=== PATIENT | female | born 1985 | race Caucasian/White ===

== ENCOUNTER → 2019-10-12 09:59 | Outpatient (CLI) | payer OTHER, SELFPAY ==
--- NOTE | ~2019-10-12 | XR_ITS ---
EXAMINATION: XR chest 2V DATE: 10/12/2019 10:33 INDICATION: Cough, shortness of breath and fever TECHNIQUE: frontal and lateral views of the chest were obtained. COMPARISON: Chest radiograph dated 11/29/2018 FINDINGS: Minimal scarring at the right apex. Unchanged symmetric nipple shadows projecting over the bilateral lower lung zones. No new airspace opacities, pulmonary edema, pleural effusion or pneumothorax. The c ardiomediastinal silhouette is normal. Visualized bones and soft tissues are unremarkable. IMPRESSION: 1. No acute cardiopulmonary disease. Reviewed, dictated and finalized at location A.
== END ==
PROVIDERS: PCP Family Medicine; Visit Provider Physician Assistant Medical
DX: R50.9 Fever, unspecified (principal); R06.02 Shortness of breath; R05 Cough
CPT/HCPCS: 71046

== ENCOUNTER → 2021-07-30 08:54 | Outpatient (CLI) | payer OTHER, SELFPAY ==
[2021-07-30 21:19] LABS: SARS-CoV-2 RNA PCR Negative
== END ==
PROVIDERS: PCP Family Medicine; Visit Provider Nurse Practitioner Family
DX: R68.89 Other general symptoms and signs (principal); Z20.822 Contact with and (suspected) exposure to COVID-19
CPT/HCPCS: C9803; U0003; U0005

== ENCOUNTER 2021-09-08 07:48 | Inpatient (IN) | payer OTHER, SELFPAY ==
[2021-09-08] VITALS (15 sets, daily range): BP systolic 89–120; BP diastolic 51–72; PULSE 76–88; RESP 16–20; TEMP 36.4–37.9; O2SAT 95–100; BMI 20.3
--- NOTE | ~2021-09-08 | XR_ITS ---
XR abdomen/kub 1V 09/08/2021 09:11 Indication: Right ureteral stone. Procedure: KUB Comparison: CT dated 09/08/2021 Findings: There is delayed enhancement of the right kidney. There is a stone overlying the right blad pankaj obscured by overlying contrast in the bladder lumen. There are stones in the lower pole of the ri ght kidney. The left renal collecting system and visualized aspects of the ureter are unremarkable. Impression: 1: Probable right UVJ stone corresponding to CT finding. Delayed excretion into the right kidney, con sistent with high-grade obstruction. 2: Nonobstructing right nephrolithiasis. Reviewed, dictated and finalized at location B. CLEANER OPERATOR Impression: 1: Probable right UVJ stone corresponding to CT finding. Delayed excretion into the right kidney, consistent with high-grade obstruction. 2: Nonobstructing right nephrolithiasis.
--- NOTE | ~2021-09-08 | CT_ITS ---
EXAMINATION: CT abdomen pelvis w con DATE: 09/08/2021 08:49 INDICATION: Right-sided abdominal pain. TECHNIQUE: Computed tomography (CT) of the abdomen and pelvis was performed with 100 cc Omnipaque 350 intravenous contrast. The dose-length product was 216.61 mGy-cm. Automated exposure control and iter ative reconstruction technique were employed. COMPARISON: None. FINDINGS: Lung bases are unremarkable. Heart size normal. No significant pleural or pericardial effus ion. The liver, spleen, pancreas, adrenal glands are unremarkable. There is a small left renal cyst m easuring 9 mm. There is dense a subtle hyperdense lesion measuring 1.8 x 1.1 cm anterior aspect of th e right kidney, image 76. There is an 8 x 4 mm right UVJ stone with severe right hydroureteronephrosi s. There are nonobstructing right renal stones. There is delayed enhancement of the right renal paren chyma. Gallbladder is present. Nonobstructive bowel gas pattern. No free air or free fluid. No abnorm al pelvic masses or fluid collections. IMPRESSION: 1. Right UVJ stone measuring 8 x 4 mm with severe right hydroureteronephrosis. 2: Hyperdense right renal lesion measuring 1.8 x 1.1 cm anteriorly. Recommend correlation with MRI. 3: Nonobstructing right renal stones. Reviewed, dictated and finalized at location B. AVER APPRENTICE DECORATIVE IMPRESSION: 1. Right UVJ stone measuring 8 x 4 mm with severe right hydroureteronephrosis. 2: Hyperdense right renal lesion measuring 1.8 x 1.1 cm anteriorly. Recommend c orrelation with MRI. 3: Nonobstructing right renal stones.
--- NOTE | ~2021-09-08 | XR_ITS ---
EXAMINATION: XR retrograde pyelo w/stent RT DATE: 09/11/2021 14:03 INDICATION: Right internal ureteral stent placement TECHNIQUE: Fluoroscopic images from a right internal ureteral stent placement are submitted for revjey ew. 50 seconds of fluoroscopy time. 70 fluoroscopic images. FINDINGS: There is a right double-J internal ureteral stent projecting in expected position, with proximal [place] loop at the level of the renal pelvis and distal loop in the pelvis within the bladder lumen. IMPRESSION: 1. Right internal ureteral stent placement. Please refer to real-time procedural findings for lex bruce. Reviewed, dictated and finalized at location B. ER IMPRESSION: 1. Right internal ureteral stent placement. Please refer to real-time procedu ral findings for details.
--- NOTE | ~2021-09-08 | XR_ITS ---
EXAMINATION: XR stent kub - surgery DATE: 09/08/2021 13:30 INDICATION: Right-sided ureteral stent placement. TECHNIQUE: 2 fluoroscopic images of the abdomen and pelvis were obtained during procedure performed loren Beavers. Radiologist was not present for the imaging or procedure. The amount of fluoroscopy ti me used during this procedure was 1.8 minutes. COMPARISON: CT dated 09/08/2021 at 8:43 AM FINDINGS: Severe right hydroureteronephrosis with opacification of the collecting system likely representing ex creted contrast from the prior contrast enhanced CT. There is a right internal ureteral stent with lo ops formed in the right renal pelvis and bladder. The previous noted 8 x 4 mm stone is seen along the distal loop of the stent: February within the bladder or still at the ureterovesicular junction. A c ouple phleboliths in the left hemipelvis. IMPRESSION: 1. Severe right hydroureteronephrosis with placement of a right internal ureteral stent which is in e xpected position. 2. Stone alongside the distal aspect of the right intrarenal stent, unclear whether within the bladde r or still at the ureterovesicular junction. Reviewed, dictated and finalized at location A. MAN IMPRESSION: 1. Severe right hydroureteronephrosis with placement of a right internal ureter al stent which is in expected position. 2. Stone alongside the distal aspect of the right intrarenal stent, unclear whe ther within the bladder or still at the ureterovesicular junction.
--- NOTE | 2021-09-08 07:58 | ED.ABDPAIN ---
HPI - Abdominal Pain General Chief Complaint: Abdominal Pain Stated Complaint: R sided abd/flank pain Time Seen by Provider: 09/08/21 07:52 Source: RN notes reviewed History of Present Illness HPI narrative: Patient presents emergency room from home for abdominal pain. Patient states symptoms began 4 days ago. The pain is located in the right side of the abdomen and radiates into the right flank described as aching in nature states is associated with nausea as well as dysuria. She denies any fevers or chills chest pain shortness of breath vomiting diarrhea or any other symptoms states she has been taking Tylenol ibuprofen at home for the symptoms with last dose of Tylenol at 1 AM last night Related Data Home Medications Medication Instructions Recorded Confirmed sblcqyzikhho-rbs-jryj-FA-vit K tablet PO 09/08/21 [Adults Multivitamin] Allergies Allergy/AdvReac Type Severity Reaction Status Date / Time promethazine Allergy Unknown Unknown Verified 09/08/21 08:02 Review of Systems Review of Systems: Gen.: Denies fevers or chills ENT: Denies congestion Respiratory: Denies shortness of breath or cough CV: Denies chest pain or palpitations GI see HPI reports dysuria Musculoskeletal: Denies back pain or muscle pain Neuro: Denies numbness, tingling, weakness or focal weakness Skin: Denies rash Except as documented, all other systems reviewed and negative [facility] Past Medical History Medical History (Updated 09/08/21 @ 09:35 by Thaddeus Osei DO) Hyperlipidemia Surgical History Surgical History History of endometrial ablation Family History Family History Father Heart disease Hypertension Hyperlipidemia Tobacco abuse Mother Family history of alcoholism Heart disease Sibling Katie's disease Hyperlipidemia Other Family history of coronary artery disease Family history of elevated blood lipids Social History Social History Smoking status: Never smoker Second hand tobacco smoke exposure: No Alcohol intake: current Substance use: never Substance use type: does not use 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 No clubbing, cyanosis or edema. NEURO: Awake and alert. Following commands, speech normal, no focal deficits SKIN:: Warm, dry. Normal Color PSYCHIATRIC: Normal affect/mood Course Course Emergency Course: Discussed Dr. Beavers presentation work-up at this time request admission to his service with plan for OR later today Discussed with patient and family results of workup and diagnosis. Discussed need for admission. Patient and family understand and agree to current treatment plan Vital Signs Vital signs: Vital Signs Temperature 98.4 F 09/08/21 07:52 Pulse Rate 88 09/08/21 07:52 Respiratory Rate 18 09/08/21 07:52 Blood Pressure 120/72 09/08/21 07:52 Pulse Oximetry 100 09/08/21 07:52 Temperature 98.4 F 09/08/21 07:52 Pulse Rate 80 09/08/21 09:26 Respiratory Rate 18 09/08/21 09:26 Blood Pressure 110/67 09/08/21 09:26 Pulse Oximetry 100 09/08/21 09:26 MDM - Abdominal Pain Lab Data Result diagrams: 09/08/21 08:02 09/08/21 08:02 Labs: Lab Results 09/08/21 09/08/21 09/08/21 Range/Units
[2021-09-08 08:08] LABS: Basophils Percent Auto 0.3 % (0.2-1.2); Eosinophils Absolute Auto 0.1 K/mm3 (0-0.3); Eosinophils Percent Auto 0.8 % (0-4.4); Hematocrit 36.7 % (37.0-47.0); Hemoglobin 12.1 g/dL (12.0-15.0); Immature Granulocyte Absolute 0.08 K/mm3 (0.00-0.031); Immature Granulocyte Percent A 1.1 % (0-0.5); Lymphocytes Absolute Auto 0.69 K/mm3 (0.9-3.2); Lymphocytes Percent Auto 9.3 % (18.3-44.2); Mean Corpuscular Hemoglobin 30.8 pg (26-34); Mean Corpuscular Volume 93.4 fl (80-100); Mean Platelet Volume 10.6 fl (7.4-10.4); Monocytes Absolute Auto 0.8 K/mm3 (0.1-0.6); Monocytes Percent Auto 11.1 % (2.6-8.5); Neutrophils Absolute Auto 5.7 K/mm3 (1.3-6.7); Neutrophils Percent Auto 77.4 % (45.5-73.1); Platelet Count Result 176 k/mm3 (150-375); Red Blood Count 3.93 M/mm3 (4.2-5.4); Red Cell Distribution Width 12.1 % (11.5-14.5); White Blood Count 7.4 K/mm3 (4.5-10.0)
[2021-09-08] MEDS: ONDANSETRON INJ 4 MG/2 ML VIAL IV PUSH (08:08)
[2021-09-08] MEDS: SODIUM CHLORIDE 0.9% IV 1,000 ML 999 ML IV CONT (08:08)
[2021-09-08] MEDS: KETOROLAC 30 MG/ML VIAL (*BKC) IV PUSH (08:08)
[2021-09-08 08:12] LABS: Add Urine Microscopic? YES; Appearance Urine Clear (Clear); Bacteria Urine Trace /hpf; Bilirubin Urine Negative (Negative); Blood Urine Negative (Negative); Color Urine Amber (Yellow); Glucose Urine UA Negative (Negative); Ketones Urine Negative (Negative); Leukocyte Esterase Ur Negative LEU/UL (Negative); Mucus Urine Rare /lpf; Nitrate Urine Positive (Negative); Protein Urine Negative (Negative); Specific Grav Ur 1.019 (1.001-1.035); Squamous Epithelial Cell Urine Many /hpf (Few); Urobilinogen Urine Negative mg/dL (<2.0)
[2021-09-08 08:21] LABS: Alanine Aminotransferase 33 U/L (4-35); Albumin Level 4.3 g/dL (3.5-5.1); Alkaline Phosphatase 65 U/L (38-126); Anion Gap 6 mmol/L (8-16); Aspartate Amino Transferase 34 U/L (14-36); Bilirubin,Total 0.8 mg/dL (0.2-1.3); Blood Urea Nitrogen 14 mg/dL (7-17); Calcium 8.3 mg/dL (8.4-10.2); Carbon Dioxide 24 mmol/L (22-30); Chloride 106 mmol/L (98-107); Estimated CRCL calculation 70 ml/min; Estimated Glomerular Filt Rate > 60; Glucose 97 mg/dL (65-110); Lipase 42 U/L (23-300); Potassium 4.1 mmol/L (3.4-5.0); Sodium 136 mmol/L (137-145)
--- NOTE | 2021-09-08 11:16 | ADMGEN ---
This patient, Meredith Bell, was admitted to [facility] Surg Room 321-01 at 1101. Patient/family oriented to hospital policies and general routines including ID bracelet, bed and alarms, visiting hours, pain management, procedures, bathroom and other care routines, personal items, smoking policy, room service/diet, and visiting hours. Information on how to activate the Rapid Response Team has been discussed. Patient/Family are encouraged to report perceived risks to care and to ask questions if they do not understand what they are told or what they should do.
[2021-09-08] MEDS: LACTATED RINGERS 1,000 ML 30 ML IV CONT (12:17)
--- NOTE | 2021-09-08 12:19 | WPDANESEPPF ---
Anes - Initial Pre Proc Eval Procedure: Operation Date: 09/08/21 13:00 Proposed Procedures p Cystoscopy with Right Stent Placement, Possible Ureteroscopy - Jarod Beavers MD Date/Time: 09/08/21 12:19 Surgeon: Jarod Beavers MD Pre Op Diagnosis: Right kidney stone/UTI Patient Data Age: 36 Gender: F Height: 1.65 m Weight: 55.5 kg Last Vital Signs Temp 37.7 C H 09/08/21 12:00 Pulse 81 09/08/21 12:00 Resp 16 09/08/21 12:00 BP 108/57 L 09/08/21 12:00 Pulse Ox 98 09/08/21 12:00 Allergies Allergy/AdvReac Type Severity Reaction Status Date / Time promethazine Allergy Unknown Unknown Verified 09/08/21 11:09 Home Medications Medication Instructions Recorded Confirmed Type fluoxetine 10 mg capsule See Rx Instructions .ROUTE 02/02/21 09/08/21 Rx .COMPLEX #90 cap atorvastatin 10 mg PO DAILY 09/08/21 09/08/21 History onfdbuzcewvl-zkj-ktwz-FA-vit K 1 tablet PO DAILY 09/08/21 09/08/21 History [Adults Multivitamin] Laboratory Tests 09/08/21 09/08/21 09/08/21 08:01 08:02 08:02 WBC 7.4 K/mm3 K/mm3 (4.5-10.0) RBC 3.93 M/mm3 L M/mm3 (4.2-5.4) Hgb 12.1 g/dL g/dL (12.0-15.0) Hct 36.7 % L % (37.0-47.0) MCV 93.4 fl fl (80-100) MCH 30.8 pg pg (26-34) MCHC 33.0 g/dl g/dl (32-36) RDW 12.1 % % (11.5-14.5) Plt Count 176 k/mm3 k/mm3 (150-375) MPV 10.6 fl H fl (7.4-10.4) Immature Gran % (Auto) 1.1 % H % (0-0.5) Neut % (Auto) 77.4 % H % (45.5-73.1) Lymph % (Auto) 9.3 % L % (18.3-44.2) [place] % (Auto) 11.1 % H % (2.6-8.5) Eos % (Auto) 0.8 % % (0-4.4) Baso % (Auto) 0.3 % % (0.2-1.2) Lymph # (Auto) 0.69 K/mm3 L K/mm3 (0.9-3.2) [place] # (Auto) 0.8 K/mm3 H K/mm3 (0.1-0.6) Eos # (Auto) 0.1 K/mm3 K/mm3 (0-0.3) Baso # (Auto) 0.0 K/mm3 K/mm3 (0.0-0.1) Abs Immat Gran (auto) 0.08 K/mm3 H K/mm3 (0.00-0.031) Absolute Neuts (auto) 5.7 K/mm3 K/mm3 (1.3-6.7) Absolute Nucleated RBC 0.0 K/mm3 K/mm3 (0.0-0.012) Nucleated RBC % 0.0 % % (0.0-0.2) Sodium 136 mmol/L L mmol/L (137-145) Potassium 4.1 mmol/L mmol/L (3.4-5.0) Chloride 106 mmol/L mmol/L (98-107) Carbon Dioxide 24 mmol/L mmol/L (22-30) Anion Gap 6 mmol/L L mmol/L (8-16) BUN 14 mg/dL mg/dL (7-17) Creatinine 0.80 mg/dL mg/dL (0.7-1.0) Estim Creat Clear Calc 70 ml/min ml/min Estimated GFR > 60 (59 - ) Glucose 97 mg/dL mg/dL (65-110) Calcium 8.3 mg/dL L mg/dL (8.4-10.2) Total Bilirubin 0.8 mg/dL mg/dL (0.2-1.3) AST 34 U/L U/L (14-36) ALT 33 U/L U/L (4-35) Alkaline Phosphatase 65 U/L U/L (38-126) Total Protein 7.0 g/dL g/dL (6.3-8.2) Albumin 4.3 g/dL g/dL (3.5-5.1) Lipase 42 U/L U/L (23-300) Urine Color Ela (Yellow) Urine Appearance Clear (Clear) Urine pH 6.0 (5.0-9.0) Ur Specific [place] 1.019 (1.001-1.035) Urine Protein Negative mg/dL mg/dL (Negative) Urine Glucose (UA) Negative mg/dL mg/dL (Negative) Urine Ketones Negative mg/dL mg/dL (Negative) Ur Blood (Man) Negative (Negative) Urine Nitrate Positive H (Negative) Urine Bilirubin Negative (Negative) Urine Urobilinogen Negative mg/dL mg/dL (<2.0) Leukocyte Esterase Rfl Negative ANIVAL/UL ANIVAL/UL (Negative) Urine RBC 6-10 /hpf H /hpf (0-2) Urine WBC 10-15 /hpf H /hpf Ur Squamous Epith Cells Many /hpf H /hpf (Few) Urine Bacteria Trace /hpf /hpf Urine Mucus Rare /lpf /lpf Patient hx anesthesia problems: none Family hx
[2021-09-08] MEDS: SCOPOLAMINE 1.5 MG PATCH TRANSDERM (12:26)
--- NOTE | 2021-09-08 12:50 | PM.IMHP ---
H&P: HPI History of Present Illness Date/Time: 09/08/21 12:50 this is a 36-year-old woman with history of right-sided flank pain since Wednesday. She had no blood in the urine. She noted some bladder cramping and possible dysuria at the end of voiding. She has had a stone before. Past on its own. The pain intensified today. This prompted visit to the emergency room which showed a large 8 mm right distal ureteral stone with a significant amount of hydronephrosis proximal to the stone. There was also an indeterminate renal lesion which will require further workup down the road. She denies any fevers. She is currently comfortable with some pain medicine and antibiotics. She set to go to [facility] this weekend on a vacation. In light of the size of the stone and the abnormal urinalysis I will place a right ureteral stent with definitive stone management to follow. Chief Complaint: ureteral stone Review of Systems Review of Systems: All systems reviewed & are unremarkable except as noted in HPI and below PMFSH Past Medical History Medical History Anxiety and depression Hyperlipidemia Surgical History Surgical History History of endometrial ablation Family History Family History Father Heart disease Hypertension Hyperlipidemia Tobacco abuse Mother Family history of alcoholism Heart disease Sibling Katie's disease Hyperlipidemia Other Family history of coronary artery disease Family history of elevated blood lipids Social History Social History Smoking status: Never smoker Second hand tobacco smoke exposure: No Alcohol intake: current Drinks per week: 2 Substance use: never Substance use type: does not use 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 Gender identity (if verbalized by the patient): Female Spiritual care concerns: No Comments 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 Meds Home Medications and Allergies Home Medications Medication Instructions Recorded Confirmed Type fluoxetine 10 mg capsule See Rx Instructions .ROUTE 02/02/21 09/08/21 Rx .COMPLEX #90 cap atorvastatin 10 mg PO DAILY 09/08/21 09/08/21 History wxnrxcnojjam-lfh-uzhp-FA-vit K 1 tablet PO DAILY 09/08/21 09/08/21 History [Adults Multivitamin] Allergies Allergy/AdvReac Type Severity Reaction Status Date / Time promethazine Allergy Unknown Unknown Verified 09/08/21 11:09 Vital Signs Vital Signs - 24 hr 09/08/21 07:52 09/08/21 09:26 09/08/21 10:53 Temperature 98.4 F Pulse Rate 88 80 80 Respiratory Rate 18 18 18 Blood Pressure 120/72 110/67 104/64 Pulse Oximetry 100 100 99 09/08/21 11:12 09/08/21 12:00 Temperature 99.9 F H Pulse Rate 81 Respiratory Rate 16 Blood Pressure 108/57 L Pulse Oximetry 99 98 Exam Const: General: cooperative, healthy appearing and comfortable HENMT: Head: normal to inspection Ears: hearing grossly normal bilaterally General nose exam: Normal external nose present Face and sinus: normal facial exam Eyes: General: appearance normal, both eyes and all related structures Neck: Neck: normal visual inspection and full ROM Resp: Effort & Inspection: normal respiratory effort and able to speak in complete sentences Skin: General skin exam: normal color and no rashes or lesions noted Neuro: General: patient oriented x3 Extrem: General: normal to inspection Psych: Appearance: grossly normal and well kempt H&P: Results Labs Labs: Short CBC 09/08/21 Range/Units 08:02 WBC 7.4 (4.5-10.0) K/mm3 Hgb 12.1 (12.0-15.0) g/dL Hct 36.7 L (37.0-47.0) % Plt Count 176 (150-375) k/mm3 BMP 09/08/21 08:02 Sodium 136 L Potassium 4.1 Chloride 106 Carbon Dioxide 24 BUN 14
--- NOTE | 2021-09-08 12:54 | WPDHPUPDATE1 ---
History and Physical Update Update Date/Time: 09/08/21 12:54 History and Physical has been reviewed, including an updated exam of the patient. There are NO changes in the patient's condition. Risks, benefits, and alternatives have been discussed and questions answered. Patient agrees to proceed with procedure.
[2021-09-08] MEDS: LIDOCAINE HCL 2% GEL UROJET 10 ML PKG MUCOUS MEM (13:26)
[2021-09-08] MEDS: PHENAZOPYRIDINE HCL 100 MG TABLET 200 MG PO (16:00)
[2021-09-08] MEDS: OXYBUTYNIN CHLORIDE 5 MG TABLET PO (16:00)
--- NOTE | 2021-09-08 16:56 | P.OP_ITS ---
Procedure Note - Detailed Date of Procedure 09/08/21 Pre-op Diagnosis Right kidney stone/UTI Post-op Diagnosis same Procedure Performed Cystoscopy with right ureteral stent placed Surgeon Jarod Beavers MD Anesthesia general Indications This only large right distal ureteral stone. Her urinalysis is positive for nitrate. There was white blood cells. She is here today for stent placement. She understands risks of bleeding, infection, damage to the urinary tract, inability to place the stent. She agrees to proceed Findings Impacted stone at right ureterovesical junction. Significant right-sided hydronephrosis Description of Procedure She has correctly identified. Informed consent obtained. From the operating room. She was given appropriate perioperative antibiotics in the emergency room. She was prepped and draped in dorsal lithotomy position. A time-out performed. Marriage And Family Social Worker radiograph revealed significant hydronephrosis. She had a previous contrast enhanced CT scan. I collected a urine for culture. I performed cystoscopy. She had some inflammation on the floor of her bladder consistent with possible urinary tract infection. There is no other bladder abnormalities. I attempted to place a guidewire into the right ureteral orifice. It took some manipulating to get a Glidewire past the impacted stone but I was eventually able to get into the renal pelvis. Of note the ureter was quite tortuous. I tried to place a 4.8 variable length stent over the Glidewire but was unable due to the obstruction from the ureteral stone. I then got a opened ended ureteral catheter past the stone. I placed a superstiff wire into the renal pelvis. I then was able to load a 4.8 variable length stent. The proximal coil was in the renal pelvis. The distal coil was in the bladder. Her bladder was drained. She was awakened and transferred to PACU in stable condition Implants Variable length stent Estimated Blood Loss 1 Packing No Pathology none sent Complications No immediate complications Condition stable Disposition PACU
[2021-09-08] MEDS: ACETAMINOPHEN 325 MG TABLET PO (20:55)
[2021-09-08] MEDS: PHARMACIST COMMUNICATION ORDER 1 EACH XX (23:36)
[2021-09-09] VITALS (12 sets, daily range): BP systolic 90–103; BP diastolic 50–60; PULSE 58–67; RESP 15–20; TEMP 37.3–37.9; O2SAT 97–100
[2021-09-09 06:18] LABS: Basophils Percent Auto 0.4 % (0.2-1.2); Eosinophils Absolute Auto 0.1 K/mm3 (0-0.3); Eosinophils Percent Auto 1.1 % (0-4.4); Hematocrit 32.5 % (37.0-47.0); Hemoglobin 10.6 g/dL (12.0-15.0); Immature Granulocyte Absolute 0.02 K/mm3 (0.00-0.031); Immature Granulocyte Percent A 0.4 % (0-0.5); Lymphocytes Absolute Auto 1.04 K/mm3 (0.9-3.2); Lymphocytes Percent Auto 19.8 % (18.3-44.2); Mean Corpuscular HGB Conc 32.6 g/dl (32-36); Mean Corpuscular Hemoglobin 30.6 pg (26-34); Mean Corpuscular Volume 93.9 fl (80-100); Mean Platelet Volume 10.5 fl (7.4-10.4); Monocytes Absolute Auto 0.7 K/mm3 (0.1-0.6); Monocytes Percent Auto 14.1 % (2.6-8.5); Neutrophils Absolute Auto 3.4 K/mm3 (1.3-6.7); Neutrophils Percent Auto 64.2 % (45.5-73.1); Platelet Count Result 146 k/mm3 (150-375); Red Blood Count 3.46 M/mm3 (4.2-5.4); Red Cell Distribution Width 12.1 % (11.5-14.5); White Blood Count 5.3 K/mm3 (4.5-10.0)
[2021-09-09 06:31] LABS: Anion Gap 3 mmol/L (8-16); Blood Urea Nitrogen 9 mg/dL (7-17); Calcium 8.3 mg/dL (8.4-10.2); Carbon Dioxide 26 mmol/L (22-30); Chloride 105 mmol/L (98-107); Estimated CRCL calculation 97 ml/min; Estimated Glomerular Filt Rate > 60; Glucose 91 mg/dL (65-110); Potassium 4.3 mmol/L (3.4-5.0); Sodium 134 mmol/L (137-145)
--- NOTE | 2021-09-09 06:58 | WPDANESPN ---
Anes - Prog Note Post-Op Date/Time: 09/09/21 06:58 Cardiovascular status: normal Respiratory status: normal Airway patency: baseline Mental status: baseline Post-Op hydration status: normal Vital Signs: Last Vital Signs Temp 99.8 F H 09/09/21 04:00 Pulse 66 09/09/21 04:00 Resp 18 09/09/21 06:00 BP 90/60 L 09/09/21 04:00 Pulse Ox 97 09/09/21 04:00 Pain Score (VAS): 2-3 Headache. Tylenol with relief I/O: Intake & Output 09/08/21 09/08/21 09/09/21 15:59 23:59 07:59 Intake Total 1100 500 Balance 1100 500 Laboratory Tests 09/09/21 06:04 09/09/21 06:04 09/08/21 09/08/21 09/08/21 08:01 08:02 08:02 WBC 7.4 RBC 3.93 L Hgb 12.1 Hct 36.7 L MCV 93.4 MCH 30.8 MCHC 33.0 RDW 12.1 Plt Count 176 MPV 10.6 H Immature Gran % (Auto) 1.1 H Neut % (Auto) 77.4 H Lymph % (Auto) 9.3 L [place] % (Auto) 11.1 H Eos % (Auto) 0.8 Baso % (Auto) 0.3 Lymph # (Auto) 0.69 L [place] # (Auto) 0.8 H Eos # (Auto) 0.1 Baso # (Auto) 0.0 Abs Immat Gran (auto) 0.08 H Absolute Neuts (auto) 5.7 Absolute Nucleated RBC 0.0 Nucleated RBC % 0.0 Sodium 136 L Potassium 4.1 Chloride 106 Carbon Dioxide 24 Anion Gap 6 L BUN 14 Creatinine 0.80 Estim Creat Clear Calc 70 Estimated GFR > 60 Glucose 97 Calcium 8.3 L Total Bilirubin 0.8 AST 34 ALT 33 Alkaline Phosphatase 65 Total Protein 7.0 Albumin 4.3 Lipase 42 Urine Color Ela Urine Appearance Clear Urine pH 6.0 Ur Specific [place] 1.019 Urine Protein Negative Urine Glucose (UA) Negative Urine Ketones Negative Ur Blood (Man) Negative Urine Nitrate Positive H Urine Bilirubin Negative Urine Urobilinogen Negative Leukocyte Esterase Rfl Negative Urine RBC 6-10 H Urine WBC 10-15 H Ur Squamous Epith Cells Many H Urine Bacteria Trace Urine Mucus Rare 09/09/21 09/09/21 06:04 06:04 WBC 5.3 RBC 3.46 L Hgb 10.6 L Hct 32.5 L MCV 93.9 MCH 30.6 MCHC 32.6 RDW 12.1 Plt Count 146 L MPV 10.5 H Immature Gran % (Auto) 0.4 Neut % (Auto) 64.2 Lymph % (Auto) 19.8 [place] % (Auto) 14.1 H Eos % (Auto) 1.1 Baso % (Auto) 0.4 Lymph # (Auto) 1.04 [place] # (Auto) 0.7 H Eos # (Auto) 0.1 Baso # (Auto) 0.0 Abs Immat Gran (auto) 0.02 Absolute Neuts (auto) 3.4 Absolute Nucleated RBC 0.0 Nucleated RBC % 0.0 Sodium 134 L Potassium 4.3 Chloride 105 Carbon Dioxide 26 Anion Gap 3 L BUN 9 D Creatinine 0.60 L Estim Creat Clear Calc 97 Estimated GFR > 60 Glucose 91 Calcium 8.3 L Total Bilirubin AST ALT Alkaline Phosphatase Total Protein Albumin Lipase Urine Color Urine Appearance Urine pH Ur Specific [place] Urine Protein Urine Glucose (UA) Urine Ketones Ur Blood (Man) Urine Nitrate Urine Bilirubin Urine Urobilinogen Leukocyte Esterase Rfl Urine RBC Urine WBC Ur Squamous Epith Cells Urine Bacteria Urine Mucus Post-procedural complaints: none Patient Feedback: Patient satisfied with anesthetic care.
[2021-09-09] MEDS: FLUoxetine HCL 10 MG CAPSULE PO (08:37)
[2021-09-09] MEDS: ATORVASTATIN 10 MG TABLET PO (08:37)
[2021-09-09] MEDS: MULTIVITAMINS /C LUTEIN (CENTRUM SILVER) TABLET *BKC 1 TAB PO (08:37)
[2021-09-09] MEDS: OXYBUTYNIN CHLORIDE 5 MG TABLET PO (08:37)
[2021-09-09] MEDS: ACETAMINOPHEN 325 MG TABLET PO ×2 (08:47→19:28)
[2021-09-09] MEDS: PHENAZOPYRIDINE HCL 100 MG TABLET 200 MG PO ×3 (09:26→18:21)
--- NOTE | 2021-09-09 10:37 | WPDUROPN2 ---
Progress Note: A&P Assessment and Plan (1) UTI (urinary tract infection): Code(s): N39.0 - Urinary tract infection, site not specified Status: Acute Assessment and Plan: Continue IV Rocephin, d/t her ongoing fever, we will plan to keep her overnight tonight and re-assess tomorrow. Once the culture comes back we will place her on appropriate oral antibiotics for 10-14 days. (2) Hydronephrosis due to obstruction of ureter: Code(s): N13.1 - Hydronephrosis with ureteral stricture, not elsewhere classified Status: Acute Assessment and Plan: Right ureteral stent in place, will plan definitive stone management as an outpatient in a few weeks once we have repeated her urine culture after antibiotic use. Subjective Subjective Date/Time Seen: 09/09/21 10:37 POD #1 Cystoscopy, right stent by Dr. Beavers. She is tolerating her stent diet and activity well. She notes improvement of dysuria but that she has had urinary frequency. She unfortunately has been running a low grade fever throughout the night and c/o diaphoresis. Review of Systems Cardiovascular: Cardiovascular: Denies chest pain and Reports diaphoresis Respiratory: Respiratory: Reports no additional respiratory complaints Gastrointestinal: Gastrointestinal: Reports abdominal pain, Denies nausea and Denies vomiting Genitourinary: Genitourinary: Denies hematuria, Reports nocturia, Denies dysuria, Denies pelvic pain, Reports flank pain, Denies urinary incontinence and Reports urinary urgency Exam Resp: Effort & Inspection: normal respiratory effort Cardio: Rate: regular rate GI: GI Palp: Yes Soft to palpation and Yes Tenderness to palpation present (GI) (RLQ) : General: Yes CVA tenderness on the right Extrem: General: no edema Objective Data Vital Signs Vital Signs: Vital Signs - 24 hr 09/08/21 10:53 09/08/21 11:12 09/08/21 12:00 Temperature 99.9 F H Pulse Rate 80 81 Respiratory Rate 18 16 Blood Pressure 104/64 108/57 L Pulse Oximetry 99 99 98 09/08/21 13:30 09/08/21 13:45 09/08/21 14:00 Temperature 97.6 F Pulse Rate 76 81 77 Respiratory Rate 20 20 17 Blood Pressure 89/51 L 103/54 L 101/64 Pulse Oximetry 99 100 96 09/08/21 14:15 09/08/21 14:30 09/08/21 15:30 Temperature Pulse Rate 82 83 80 Respiratory Rate 20 19 19 Blood Pressure 106/62 99/58 L Pulse Oximetry 95 97 99 09/08/21 15:34 09/08/21 20:00 09/08/21 21:55 Temperature 100.3 F H 99.3 F Pulse Rate 80 82 Respiratory Rate 20 18 Blood Pressure 105/62 89/59 L Pulse Oximetry 100 97 09/08/21 22:00 09/09/21 00:00 09/09/21 04:00 Temperature 99.3 F 99.8 F H Pulse Rate 67 66 Respiratory Rate 18 18 18 Blood Pressure 94/50 L 90/60 L Pulse Oximetry 97 97 09/09/21 06:00 09/09/21 08:44 09/09/21 08:47 Temperature 100.1 F H 100.1 F H Pulse Rate 65 Respiratory Rate 18 16 Blood Pressure 101/59 L Pulse Oximetry 99 09/09/21 09:47 Temperature 99.5 F Pulse Rate Respiratory Rate Blood Pressure Pulse Oximetry Intake/Output Intake/Output: Intake & Output 09/06/21 09/07/21 09/08/21 09/09/21 23:59 23:59 23:59 23:59 Intake Total 1100 750 Balance 1100 750 Meds/Results Medications: Active Medications Generic Name Dose Route Start Last Admin Trade Name Freq PRN Reason Stop Dose Admin Acetaminophen 0 mg 09/08/21 20:11 09/09/21 08:47 Acetaminophen 325 Mg Tablet PO 650 mg Q6H PRN Administration Mild Pain (1-3) or Fever Hydrocodone Bitart/Acetaminophen 1 tab 09/08/21 14:33 Hydrocodone/Acetaminophen (*Crx) 5-325 Mg Tablet PO Q6H PRN Pain Rated 4-6 Atorvastatin Calcium 10 mg 09/09/21 09:00 09/09/21 08:37 Atorvastatin 10 Mg Tablet PO 10 mg DAILY BOGDAN Administration Fluoxetine HCl 10 mg 09/09/21 09:00 09/09/21 08:37 Fluoxetine Hcl 10 Mg Capsule PO 10 mg DAILY BOGDAN Administration Ceftriaxone Sodium/Dextrose 1 gm in 50 mls @ 100 mls/hr 09/09/21
[2021-09-10] VITALS (7 sets, daily range): BP systolic 101–114; BP diastolic 62–65; PULSE 67–81; RESP 14–18; TEMP 36.8–36.9; O2SAT 95–99
[2021-09-10] MEDS: ONDANSETRON INJ 4 MG/2 ML VIAL IV PUSH (08:18)
[2021-09-10] MEDS: PHENAZOPYRIDINE HCL 100 MG TABLET 200 MG PO ×3 (08:18→16:52)
[2021-09-10] MEDS: FLUoxetine HCL 10 MG CAPSULE PO (08:56)
[2021-09-10] MEDS: ATORVASTATIN 10 MG TABLET PO (08:56)
[2021-09-10] MEDS: MULTIVITAMINS /C LUTEIN (CENTRUM SILVER) TABLET *BKC 1 TAB PO (08:57)
--- NOTE | 2021-09-10 11:14 | WPDUROPN2 ---
Progress Note: A&P Assessment and Plan (1) Hydronephrosis due to obstruction of ureter: Code(s): N13.1 - Hydronephrosis with ureteral stricture, not elsewhere classified Status: Acute Assessment and Plan: Right stent in place. Still having some RLQ pain, excessive diaphoresis and chills. Fever broke late last night, but now nauseated and constipated likely secondary to pain meds. (2) Abnormal urinalysis: Code(s): R82.90 - Unspecified abnormal findings in urine Status: Acute Assessment and Plan: Urine cultures came back negative. Continue IV antibiotics d/t upcoming procedure. (3) Ureteral calculus, right: Code(s): N20.1 - Calculus of ureter Status: Acute Assessment and Plan: Since she has had a negative urine culture, Dr. Wallace will plan to do a Cystoscopy, right ureteroscopy with stone extraction, right stent exchange, possible holmium laser, right retrogradepyelogram tomorrow. We will keep her overnight d/t ongoing chills and new nausea. She has not been fever free for 24 hours. Keep NPO after midnight. Obtain consent. If doing well tomorrow and fever free, will plan to discharge home after surgery. Subjective Subjective Date/Time Seen: 09/10/21 11:14 POD #2 Cystoscopy, right stent by Dr. Beavers. She is tolerating her stent, diet and activity well, but does c/o nausea and constipation. She notes improvement of dysuria but that she has had urinary frequency and RLQ pain. She unfortunately has been running a low grade fever which broke around 11pm last night, she still c/o diaphoresis and chills as well. Review of Systems Cardiovascular: Cardiovascular: Denies chest pain and Reports diaphoresis Respiratory: Respiratory: Reports no additional respiratory complaints Gastrointestinal: Gastrointestinal: Reports abdominal pain, Reports constipation, Reports nausea and Denies vomiting Genitourinary: Genitourinary: Reports hematuria, Denies dysuria, Denies pelvic pain, Reports flank pain and Reports urinary urgency Exam Resp: Effort & Inspection: normal respiratory effort Cardio: Rate: regular rate GI: GI Palp: Yes Soft to palpation and Yes Tenderness to palpation present (GI) (RLQ) : General: Yes CVA tenderness on the right Extrem: General: no edema Objective Data Vital Signs Vital Signs: Vital Signs - 24 hr 09/09/21 12:00 09/09/21 17:30 09/09/21 19:28 Temperature 99.2 F 99.9 F H 100.3 F H Pulse Rate 58 L 67 Respiratory Rate 15 18 Blood Pressure 98/59 L 103/53 L Pulse Oximetry 99 100 09/09/21 20:00 09/09/21 22:00 09/09/21 23:29 Temperature 100.3 F H 99.3 F 99.3 F Pulse Rate 62 Respiratory Rate 20 Blood Pressure 101/60 Pulse Oximetry 99 09/10/21 00:00 09/10/21 04:00 09/10/21 06:00 Temperature 98.5 F 98.3 F Pulse Rate 76 72 Respiratory Rate 18 18 18 Blood Pressure 101/62 102/64 Pulse Oximetry 95 97 09/10/21 10:05 Temperature 98.3 F Pulse Rate 67 Respiratory Rate 14 Blood Pressure 114/65 Pulse Oximetry 99 Intake/Output Intake/Output: Intake & Output 09/07/21 09/08/21 09/09/21 09/10/21 23:59 23:59 23:59 23:59 Intake Total 1100 1945 150 Balance 1100 1945 150 Meds/Results Medications: Active Medications Generic Name Dose Route Start Last Admin Trade Name Freq PRN Reason Stop Dose Admin Acetaminophen 0 mg 09/08/21 20:11 09/09/21 19:28 Acetaminophen 325 Mg Tablet PO 650 mg Q6H PRN Administration Mild Pain (1-3) or Fever Hydrocodone Bitart/Acetaminophen 1 tab 09/08/21 14:33 Hydrocodone/Acetaminophen (*Crx) 5-325 Mg Tablet PO Q6H PRN Pain Rated 4-6 Atorvastatin Calcium 10 mg 09/09/21 09:00 09/10/21 08:56 Atorvastatin 10 Mg Tablet PO 10 mg DAILY BOGDAN Administration Fluoxetine HCl 10 mg 09/09/21 09:00 09/10/21 08:56 Fluoxetine Hcl 10 Mg Capsule PO 10 mg DAILY BOGDAN Administration Ceftriaxone Sodium/Dextrose 1 gm in 50 mls @ 100 mls/hr 09/09/21
[2021-09-10] MEDS: polyethylene glycoL 3350 17 GM POWD.PACK PO (13:34)
[2021-09-11] VITALS (9 sets, daily range): BP systolic 96–114; BP diastolic 61–67; PULSE 64–73; RESP 10–18; TEMP 36.6–37; O2SAT 73–100
--- NOTE | 2021-09-11 06:52 | WPDHPUPDATE1 ---
History and Physical Update Update Date/Time: 09/11/21 06:52 Imaging/chart reviewed and discusse with Vandana Lepe NP. Agree With plans for cystoscopy with right ureteroscopy, laser lithotripsy with stone extraction and possible stent replacement. History and Physical has been reviewed, including an updated exam of the patient. There are NO changes in the patient's condition. Risks, benefits, and alternatives have been discussed and questions answered. Patient agrees to proceed with procedure.
[2021-09-11] MEDS: ACETAMINOPHEN 325 MG TABLET PO (08:06)
[2021-09-11] MEDS: LACTATED RINGERS 1,000 ML 30 ML IV CONT ×2 (12:11→14:06)
--- NOTE | 2021-09-11 12:48 | WPDANESEFPP ---
Anes - Eval Final PreProcedure Day of Procedure 09/11/21 12:48 Patient weight: normal Heart: regular rate and rhythm Lungs: clear to auscultation Airway: Mallampati scale class 1 Neurological: alert and oriented Last oral intake: >/= 8 hours ASA classification: II Anesthetic plan: proceed Anesthesia type and monitoring: general LMA and standard monitoring Results Review: All pre-operative results and documents have been reviewed as part of the pre-operative evaluation. Informed Consent: The patient's anesthetic plan and its attendant risks and benefits were discussed with the patient/family/POA. Questions were solicited and answers provided to the satisfaction of the patient/family/POA.
[2021-09-11] MEDS: LIDOCAINE HCL 2% GEL UROJET 10 ML PKG MUCOUS MEM (13:44)
--- NOTE | 2021-09-11 14:12 | W.PM.PROC2 ---
Procedure Note - Detailed Date of Procedure 09/11/21 Pre-op Diagnosis Right ureteral stone Post-op Diagnosis same Procedure Performed Cystoscopy, right ureteral stent removal, right ureteroscopy with laser lithotripsy/stone extraction, right retrograde pyelography and right ureteral stent replacement. Surgeon Jonnie Wallace MD Anesthesia general Description of Procedure In the operative suite the patient is placed in the dorsal lithotomy position after the uneventful induction of a general anesthetic. Nineteen F rigid cystoscope was placed in her bladder. Tip of the indwelling stent is grasped and brought to the external urethral meatus. A 0.035 in glidewire was advanced into right renal pelvis under fluoroscopy. Ureteroscopy was undertaken with a short tapered semi-rigid ureteral scope. Her large impacted stone is fractured with a 263 micron holmium laser fiber into multiple small pieces. All fragments removed with a 1.9 F disposable basket. I did a retrograde pyelogram to ensure appropriate replacement of a 4.8 F variable length ureteral stent. The proximal coil was in the renal pelvis and distal coil in the bladder. Estimated Blood Loss 1 Drains Yes Packing No Pathology yes Complications No immediate complications Condition stable Disposition PACU
[2021-09-11] MEDS: ATORVASTATIN 10 MG TABLET PO (15:41)
[2021-09-11] MEDS: MULTIVITAMINS /C LUTEIN (CENTRUM SILVER) TABLET *BKC 1 TAB PO (15:42)
[2021-09-11] MEDS: FLUoxetine HCL 10 MG CAPSULE PO (15:42)
[2021-09-11] MEDS: PHENAZOPYRIDINE HCL 100 MG TABLET 200 MG PO (15:42)
[2021-09-11] MEDS: polyethylene glycoL 3350 17 GM POWD.PACK PO (16:29)
--- NOTE | 2021-09-12 09:44 | PM.DS ---
DS: Admitting Diagnosis Discharge Date 09/11/21 Admitting Diagnosis Right distal ureteral calculus DS: Discharge Diagnosis Discharge Diagnosis (1) Ureteral calculus, right: Code(s): N20.1 - Calculus of ureter Status: Acute (2) Hydronephrosis due to obstruction of ureter: Code(s): N13.1 - Hydronephrosis with ureteral stricture, not elsewhere classified Status: Acute DS: Summary Hospital Course Hospital Course: Patient was admitted with a painful, obstructing right distal ureteral calculus that was quite impacted. She had low-grade fever at the time of admission. She underwent cystoscopy with right ureteral stent placement by Dr. Beavers on the day of admission. Thereafter, her urine cultures eventually showed no growth. She continued to have some nausea and vomiting which prolonged her admission. On the day of discharge she underwent laser lithotripsy with extraction of her right distal ureteral calculus. We replace the stent. Thereafter she was comfortable, tolerating a diet and had been afebrile for several days. She will be discharged with plans to follow-up for stent removal in approximately 2 weeks. Time Spent with Patient Time attestation: Total time spent providing and/or coordinating discharge services: 15 min. Exam Const: General: no acute distress Resp: Effort & Inspection: normal respiratory effort GI: Inspection: non-distended GI Palp: No abdominal tenderness and No Guarding due to palpation present (GI) Auscultation: normal bowel sounds DS: Data Data Completed and Pending Pending studies at discharge: Pending at discharge 09/11/21 14:07 Surgical [PTH] Routine Discharge Plan Discharge Attending physician on discharge: Jarod Beavers Discharging Clinician: Jonnie Wallace Anticipated Discharge Date/Time: 09/10/21 17:30 Patient Disposition: Home, Self-Care Activity: may shower Diet: as tolerated Discharge Instructions: 1) Activity: no driving or important decisions x24 hours. 2) Diet: resume your normal, pre-admission diet. 3) Follow-up: 7-14 days for stent removal / call for appointment ([phone]). Patient Instructions: Antibiotic Form Stand Alone Forms: General Discharge Information Follow-up/Referrals: Jonnie Wallace MD [Physician] - Call for Appointment Discharge Medications: New phenazopyridine [Pyridium] 200 mg tablet 200 mg PO TID PRN (Reason: pain) Qty: 30 RF: 0 oxybutynin chloride 5 mg tablet 5 mg PO TID Qty: 60 RF: 0 sulfamethoxazole-trimethoprim [Bactrim DS] 800-160 mg tablet 1 tablet PO Q12H Qty: 10 RF: 0 hydrocodone-acetaminophen 5-325 mg tablet 1 - 2 tablet PO Q6H PRN (Reason: pain) Qty: 20 RF: 0 ketorolac 10 mg tablet 10 mg PO Q6H 5 Days Qty: 20 RF: 0 ondansetron 4 mg tablet,disintegrating 4 mg PO Q6H PRN (Reason: nausea and vomiting) Qty: 20 RF: 0 Continued Adults Multivitamin 18 mg iron-400 mcg-25 mcg Tablet 1 tablet PO DAILY RF: 0 atorvastatin 10 mg tablet 10 mg PO DAILY RF: 0 fluoxetine 10 mg capsule See Rx Instructions .ROUTE .COMPLEX Qty: 90 RF: 3 Date of admission: 09/09/21 11:33 Primary Care Provider: Vincent Marion Admitting Provider: Jarod Beavers Attending physician on admission: Jarod Beavers Condition: Stable
== END 2021-09-11 17:32 | disposition home or self-care (01) | DRG 661 ==
LOC: ANHED 09:35 → ANH3MEDSUR 10:22 → ANHSUROVER 14:49
PROVIDERS: Admitting Provider Urology; Emergency Provider Emergency Medicine; PCP Family Medicine; Visit Provider Urology
PROC: 0T768DZ Dilation of Right Ureter with Intraluminal Device, Via Natural or Artificial Opening Endoscopic (ICD-10-PCS; CPT 52352; principal; 2021-09-08 13:00)
PROC: 0T768ZZ Dilation of Right Ureter, Via Natural or Artificial Opening Endoscopic (ICD-10-PCS; CPT 52352; principal; 2021-09-11 15:30)
PROC: 0T768ZZ Dilation of Right Ureter, Via Natural or Artificial Opening Endoscopic (ICD-10-PCS; 2021-09-11 15:30)
DX: N13.6 Pyonephrosis (principal); E78.5 Hyperlipidemia, unspecified; F41.8 Other specified anxiety disorders; Z82.49 Family history of ischemic heart disease and other diseases of the circulatory system; Z79.899 Other long term (current) drug therapy; N28.9 Disorder of kidney and ureter, unspecified
CPT/HCPCS: 36415; 74018; 74177; 74420; 80048; 80053; 81001; 81025; 82365; 83690; 85025; 87086; 88300; 96361; 96365; 96375; 99285; A9270; C1758; C1769; C2617; G0378; J0696; J1100; J1885; J2250; J2270; J2370; J2405; J2704; J3010; J7030; J7050; J7120; Q9966; Q9967

== ENCOUNTER → 2021-12-01 14:31 | Outpatient (CLI) | payer OTHER, SELFPAY ==
--- NOTE | ~2021-12-01 | MR_ITS ---
EXAMINATION: MR abdomen wo/w con DATE: 12/01/2021 15:56 INDICATION: Neoplasm of uncertain behavior of right kidney. Right kidney mass. TECHNIQUE: Magnetic resonance imaging (MRI) of the abdomen was performed without and with 10 mL Multi Leslie intravenous contrast. COMPARISON: CT abdomen and pelvis 09/08/2021 FINDINGS: The liver, gallbladder, spleen, pancreas, adrenal glands, and right kidney are normal. 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 There is no hydronephrosis. There a re no dilated loops of bowel. There are no pathologically enlarged lymph nodes. There is no free intr aperitoneal fluid. IMPRESSION: 1. Normal right kidney. Reviewed, dictated and finalized at location B. IMPRESSION: 1. Normal right kidney.
--- NOTE | ~2021-12-01 | XR_ITS ---
XR abdomen/kub 1V 12/01/2021 14:49 Indication: Right ureteral stone Procedure: KUB Comparison: 09/08/2021 Findings: Bowel gas pattern is nonobstructive. Moderate colonic fecal loading. There is a stone in th e lower pole of the right kidney. Bases are unremarkable. No acute osseous abnormality. Impression: 1: Right nephrolithiasis. Reviewed, dictated and finalized at location A. Impression: 1: Right nephrolithiasis.
[2021-12-01 15:17] LABS: Estimated Glomerular Filt Rate > 60
== END ==
PROVIDERS: PCP Family Medicine; Visit Provider Urology
DX: N20.1 Calculus of ureter (principal)
CPT/HCPCS: 74018; 74183; A9577

== ENCOUNTER → 2022-01-14 09:22 | Outpatient (CLI) | payer OTHER, SELFPAY ==
--- NOTE | ~2022-01-14 | XR_ITS ---
EXAMINATION: XR chest 2V 01/14/2022 09:52 INDICATION: Shortness of breath PROCEDURE: 2 view chest COMPARISON: 10/12/2019 FINDINGS: The lungs are clear. The cardiomediastinal silhouette is within normal limits. There are no pleural effusions. There is no pneumothorax suspected. The lungs are hyperinflated which is cons istent with, but not diagnostic of chronic obstructive pulmonary disease. IMPRESSION: 1: NO ACUTE CARDIOPULMONARY DISEASE. Reviewed, dictated and finalized at location A.
== END ==
PROVIDERS: PCP Nurse Practitioner Family; Visit Provider Nurse Practitioner Family
DX: R06.02 Shortness of breath (principal)
CPT/HCPCS: 71046

== ENCOUNTER 2022-03-02 08:07 | Outpatient (CLI) | payer OTHER, SELFPAY ==
--- NOTE | ~2022-03-02 | XR_ITS ---
EXAMINATION: XR chest 2V DATE: 03/02/2022 09:54 INDICATION: Shortness of breath TECHNIQUE: PA and lateral views of the chest are obtained. COMPARISON: 01/14/2022 FINDINGS: The lungs are free of acute opacities. No pleural effusion or pneumothorax. The cardiomedia stinal silhouette is normal. The visualized bones and soft tissues are unremarkable. IMPRESSION: 1. No acute cardiopulmonary abnormality. Reviewed, dictated and finalized at location A.
--- NOTE | ~2022-03-02 | NM_ITS ---
NM pulmonary perfusion INDICATION: Shortness of breath TECHNIQUE: 5.1 mCi Tc 99m MAA was injected intravenously for perfusion images. Multiple images were then acquired. COMPARISON: Chest x-ray dated 03/02/2022 FINDINGS: The comparison chest radiograph demonstrates no pulmonary infiltrates or pleural fluid. Th e perfusion scan is normal. No wedge-shaped defects are identified in either lung. IMPRESSION: 1: Normal perfusion images. Reviewed, dictated and finalized at location B. IMPRESSION: 1: Normal perfusion images.
--- NOTE | 2022-03-02 08:27 | ECHO_ITS ---
Patient Info Name: Meredith Bell Age: 36 years : 1985 Gender: Female Ht: 66 in Wt: 120 lbs BSA: 1.59 m2 HR: 63 bpm BP: 113 / 69 mmHg Technical Quality: Good Exam Date: 03/02/2022 9:56 AM Exam Location: [facility] Pulmonary Patient Status: Outpatient Admit Date: 03/02/2022 Staff Ordering Physician: Jaron Cintron APRN [place]: Danielle Clinton RDCS Attending Provider: Jaron Cintron APRN Referring Physician: Abdulaziz BO; Exam Type: CA echo doppler color flow Study Info Indications R06.02 - Shortness of breath Complete two-dimensional, color flow and Doppler transthoracic echocardiogram is performed. Summary 1. Complete two-dimensional, color flow and Doppler transthoracic echocardiogram is performed. 2. Left ventricular chamber dimension is normal. 3. Left ventricular systolic function is normal, estimated at 65-70%. 4. The left ventricular diastolic function is normal. 5. E/e' 4 is not elevated. 6. There is trace tricuspid valve regurgitation. 7. No pulmonary hypertension, estimated pulmonary arterial systolic pressure is 26 mmHg. Left Ventricle E/e' 4 is not elevated. Left ventricular chamber dimension is normal. Left ventricular systolic function is normal, estimated at 65-70%. The left ventricular diastolic function is normal. Right Ventricle Right ventricular systolic function is normal and with normal TAPSE 2.5 cm. Right ventricular chamber dimension is normal. Left Atria Left atrial chamber dimension is normal. Right Atria Right atrial chamber dimension is normal. Aortic Valve The aortic valve is trileaflet. There is no aortic valve stenosis. There is no aortic valve regurgitation. Pulmonic Valve There is no pulmonic regurgitation. Mitral Valve There is no mitral valve stenosis. There is no mitral valve regurgitation. Tricuspid Valve There is trace tricuspid valve regurgitation. No pulmonary hypertension, estimated pulmonary arterial systolic pressure is 26 mmHg. Pericardium/Pleural There is no pericardial effusion. Inferior Vena Cava Normal inferior vena cava with >50% collapse upon inspiration consistent with normal right atrial pressure, 5 mmHg. Aorta The aortic root size at the sinus of Valsalva is normal. Left Ventricular Outflow Tract Name Value Normal LVOT 2D LVOT Diameter 2.0 cm LVOT Doppler LVOT Peak Gradient 4 mmHg LVOT Mean Gradient 2 mmHg LVOT VTI 22 cm LVOT VTI/AV VTI Ratio 0.9 LVOT Stroke Volume 69 ml Pulmonic Valve Name Value Normal PV Doppler PV Peak Gradient 4 mmHg Mitral Valve Name Value Normal
--- NOTE | 2022-03-02 13:23 | WPDPFTINT ---
PFT Procedure Performed PFT Procedure Performed Spirometry with Pre/Post Bronchodilator Plethysmography (Lung Vol) Diffusing Cap (DLCO) Flow Vol Loop PFT Interpretation Lung volumes were measured with the body plethysmography method. Lung volumes are unremarkable. Spirometry showed normal FVC, normal FEV1, diminished mid expiratory flow rates and a diminished FEV1 to FVC ratio 66% suggestive of mild obstructive airway disease. Following administration of a bronchodilator, there was no significant increase in expiratory flow rates. Lung diffusion capacity is within the normal range at 116% predicted. The flow volume loop shows plateau on the expiratory limb suggestive of possible upper airway obstruction. Clinical correlation advised. Impression: Mild obstructive airway disease with no response to bronchodilators on this testing. Possible upper airway obstruction.
== END 2022-03-02 08:08 | disposition home or self-care (01) ==
LOC: ANHPFT 08:11
PROVIDERS: PCP Family Medicine; Visit Provider Nurse Practitioner Family
DX: R06.09 Other forms of dyspnea (principal); R06.02 Shortness of breath; R94.2 Abnormal results of pulmonary function studies
CPT/HCPCS: 71046; 78580; 93306; 94060; 94726; 94729; A9540

== ENCOUNTER → 2022-03-24 14:32 | Outpatient (CLI) | payer OTHER, SELFPAY ==
--- NOTE | ~2022-03-24 | CT_ITS ---
EXAMINATION: CTA chest PE protocol DATE: 03/24/2022 14:59 INDICATION: Shortness of breath TECHNIQUE: Computed tomography angiography (CTA) of the chest was performed with 100 mL Omnipaque-350 intravenous contrast timed to evaluate the pulmonary arteries. Coronal maximum intensity projection 3D-reconstructions were created by the technologist. The dose-length product (DLP) was 195.58 mGy-cm. Automated exposure control and iterative reconstruction technique were employed. COMPARISON: None. FINDINGS: The pulmonary arteries are well-opacified. No pulmonary embolism is identified. The lungs are free of acute opacities. No pleural effusion or pneumothorax. No pathologically enlarged thoracic lymph nodes are identified. The heart size is normal. Triangular soft tissue density in the anterior mediastinum likely reflects residual thymus. IMPRESSION: 1. No pulmonary embolism or acute cardiopulmonary abnormality. Reviewed, dictated and finalized at location B.
== END ==
PROVIDERS: PCP Family Medicine; Visit Provider Internal Medicine Pulmonary Disease
DX: R06.02 Shortness of breath (principal)
CPT/HCPCS: 71275; Q9967

== ENCOUNTER 2022-03-25 14:54 | Outpatient (CLI) | payer OTHER, SELFPAY ==
--- NOTE | 2022-03-27 09:32 | WPDPFTINT ---
PFT Procedure Performed PFT Procedure Performed Spirometry w/o Bronchodil PFT Interpretation Spirometry showed normal expiratory flow rates and a normal FEV1 to FVC ratio of 73%. No post bronchodilator study was carried out. In comparison to previous study in February of 2022, the FEV1 is now greater by approximately 200 mL whereas the FVC is lower by approximately 200 mL. Flow volume loop is unremarkable. Measurement of respiratory muscle strength indices showed a diminished maximal inspiratory pressure of 49 cm water or 57% predicted. The maximal expiratory pressure was measured at 88 cm of water or 58% predicted. Impression: Spirometry within normal range. Possible mild respiratory muscle weakness.
== END 2022-03-25 14:55 | disposition home or self-care (01) ==
LOC: ANHPFT 14:56
PROVIDERS: PCP Family Medicine; Visit Provider Internal Medicine Pulmonary Disease
DX: R06.02 Shortness of breath (principal)
CPT/HCPCS: 94200; 94375

== ENCOUNTER 2022-04-06 09:42 | Outpatient (CLI) | payer OTHER, SELFPAY ==
[2022-04-06 10:25] LABS: Eosinophils Absolute Auto 0.2 K/mm3 (0-0.3); Eosinophils Percent Auto 3.8 % (0-4.4); Hematocrit 39.1 % (37.0-47.0); Hemoglobin 12.3 g/dL (12.0-15.0); Immature Granulocyte Absolute 0.01 K/mm3 (0.00-0.031); Immature Granulocyte Percent A 0.3 % (0-0.5); Lymphocytes Absolute Auto 0.93 K/mm3 (0.9-3.2); Lymphocytes Percent Auto 23.4 % (18.3-44.2); Mean Corpuscular HGB Conc 31.5 g/dl (32-36); Mean Corpuscular Hemoglobin 30.4 pg (26-34); Mean Corpuscular Volume 96.8 fl (80-100); Mean Platelet Volume 9.7 fl (7.4-10.4); Monocytes Absolute Auto 0.6 K/mm3 (0.1-0.6); Monocytes Percent Auto 13.9 % (2.6-8.5); Neutrophils Absolute Auto 2.3 K/mm3 (1.3-6.7); Neutrophils Percent Auto 57.6 % (45.5-73.1); Platelet Count Result 248 k/mm3 (150-375); Red Blood Count 4.04 M/mm3 (4.2-5.4); Red Cell Distribution Width 12.6 % (11.5-14.5)
== END 2022-04-06 09:43 | disposition home or self-care (01) ==
LOC: ANHLAB 09:44
PROVIDERS: PCP Family Medicine; Visit Provider Internal Medicine Pulmonary Disease
DX: R06.02 Shortness of breath (principal)
CPT/HCPCS: 36415; 85025

== ENCOUNTER → 2022-06-03 07:56 | Outpatient (CLI) | payer OTHER, SELFPAY ==
--- NOTE | ~2022-06-03 | XR_ITS ---
XR abdomen/kub 1V DATE: 06/03/2022 08:06 INDICATION: Six-month follow-up from right lithotripsy for kidney stones TECHNIQUE: 2 AP views COMPARISON: 12/01/2021 KUB FINDINGS: No definite urinary tract calcifications are identified. The colon bowel gas shadows partia lly superimposed particular right kidney and might obscure a subtle renal calcification. Noncontrast CT abdomen pelvis would be more accurate sensitive for detection of urinary tract stones. There is a prominent amount fecal material in the colon. No bowel obstruction is evident. The psoas s hadows are intact. No visceromegaly is detected. IMPRESSION: Nonspecific abdomen Reviewed, dictated and finalized at Location A. Reviewed, dictated and finalized at location A. RVISOR [employer] SILVERING IMPRESSION: Nonspecific abdomen
== END ==
PROVIDERS: PCP Family Medicine; Visit Provider Urology
DX: N20.1 Calculus of ureter (principal)
CPT/HCPCS: 74018

== ENCOUNTER 2024-02-27 10:15 | Emergency (ER) | payer BC, SELFPAY ==
--- NOTE | ~2024-02-27 | CT_ITS ---
EXAMINATION:CT diagnostic chest w con DATE: 02/27/2024 13:04 INDICATION: Left lung mass. TECHNIQUE: Computed tomography (CT) of the chest was performed with 75 mL Omnipaque 350 intravenous c ontrast. Automated exposure control and iterative reconstruction technique were employed. The dose-le ngth product (DLP) was 137.51 mGy-cm. COMPARISON: Chest single view 02/27/2024, chest CT 03/24/2022 FINDINGS: There is mild scarring at the lung apices. There are airspace and groundglass opacities in superior segment left lower lobe, consistent with pneumonia. No pleural effusion. The heart size is n ormal. No pericardial effusion. There is mild left hilar lymphadenopathy, likely reactive. The bones are unremarkable. IMPRESSION: 1. Pneumonia in superior segment left lower lobe. 2. Mild left hilar lymphadenopathy, likely reactive. Reviewed, dictated and finalized at location E.
--- NOTE | ~2024-02-27 | XR_ITS ---
EXAMINATION: XR chest 1V portable DATE: 02/27/2024 11:11 INDICATION: Fever. TECHNIQUE: A single frontal view of the chest was obtained on 2 radiographs. COMPARISON: Chest 2 views 03/02/2022 FINDINGS: There is a mass in left midlung zone. No pleural effusion or pneumothorax. The heart size i s normal. IMPRESSION: 1. Mass in left midlung zone, which may be pneumonia or malignancy. Consider noncontrast chest CT or follow-up radiographs. Reviewed, dictated and finalized at location E. IMPRESSION: 1. Mass in left midlung zone, which may be pneumonia or malignancy. Consider no ncontrast chest CT or follow-up radiographs.
[2024-02-27 11:00] VITALS: RESP 19; O2SAT 100
[2024-02-27 11:01] VITALS: BP 109/72; PULSE 84; RESP 18; TEMP 37.3; O2SAT 100
[2024-02-27 12:30] LABS: Basophils Percent Auto 0.3 % (0.2-1.2); Eosinophils Percent Auto 0.5 % (0-4.4); Hematocrit 40.2 % (37.0-47.0); Hemoglobin 13.3 g/dL (12.0-15.0); Immature Granulocyte Absolute 0.03 K/mm3 (0.00-0.031); Immature Granulocyte Percent A 0.5 % (0-0.5); Lymphocytes Absolute Auto 0.87 K/mm3 (0.9-3.2); Mean Corpuscular HGB Conc 33.1 g/dl (32-36); Mean Corpuscular Hemoglobin 31.4 pg (26-34); Mean Platelet Volume 9.5 fl (7.4-10.4); Monocytes Absolute Auto 0.5 K/mm3 (0.1-0.6); Neutrophils Absolute Auto 4.3 K/mm3 (1.3-6.7); Neutrophils Percent Auto 74.7 % (45.5-73.1); Platelet Count Result 254 k/mm3 (150-375); Red Blood Count 4.23 M/mm3 (4.2-5.4); Red Cell Distribution Width 12.3 % (11.5-14.5); White Blood Count 5.8 K/mm3 (4.5-10.0)
[2024-02-27 12:37] LABS: BEDSIDEPREGUCG Negative
[2024-02-27 12:40] LABS: Alanine Aminotransferase 18 U/L (6-35); Albumin Level 4.7 g/dL (3.5-5.1); Alkaline Phosphatase 70 U/L (38-126); Anion Gap 11 mmol/L (4-12); Aspartate Amino Transferase 28 U/L (14-36); Bilirubin,Total 0.5 mg/dL (0.2-1.3); Blood Urea Nitrogen 11 mg/dL (7-17); Calcium 9.1 mg/dL (8.4-10.2); Carbon Dioxide 28 mmol/L (22-30); Chloride 98 mmol/L (98-107); Estimated CRCL calculation 95 ml/min; Estimated Glomerular Filt Rate > 60; Glucose 88 mg/dL (65-110); Magnesium 2.2 mg/dL (1.6-2.3); Potassium 4.2 mmol/L (3.4-5.0); Sodium 137 mmol/L (137-145)
--- NOTE | 2024-02-27 14:06 | ED.FEVER ---
HPI - Fever General Chief Complaint: Fever Stated Complaint: fever, cough Time Seen by Provider: 02/27/24 12:01 History of Present Illness HPI Narrative: This is a 38-year-old female with no significant pertinent past medical history who presents to the emergency department for evaluation of intermittent fever and chills as well as a nonproductive cough. 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 Denies having any COVID or flu and has had multiple negative tests while at work. Endorses her symptoms have been going on for about a week. Endorses some intermittent difficulty in breathing but no chest pain. Denies any nauseousness, vomiting, diarrhea, constipation, GI or symptoms otherwise. She was otherwise in her normal state of health. Was recently given amoxicillin for an ear infection 2 weeks prior which has since resolved. Denies any sore throat, dysphagia, difficulty tolerating p.o. intake. Related Data Allergies Allergy/AdvReac Type Severity Reaction Status Date / Time promethazine Allergy Unknown Unknown Verified 02/27/24 10:17 Review of Systems Review of Systems: As reviewed above in the HPI [facility] Past Medical History Medical History Anxiety and depression Body mass index (BMI) less than 20 COVID Hyperlipidemia Pneumonia Surgical History Surgical History History of endometrial ablation Family History Family History Father Heart disease Hypertension Hyperlipidemia Tobacco abuse Mother Family history of alcoholism Heart disease Sibling Katie's disease Hyperlipidemia Other Family history of coronary artery disease Family history of elevated blood lipids Social History Social History Smoking status: Never smoker Second hand tobacco smoke exposure: No Alcohol intake: current Drinks per week: 2 Substance use: never Substance use type: does not use Living arrangements: with family Occupation/Education: occupation 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 Mucous membranes moist. NECK: Supple. CHEST: Some coarse breath sounds localized to the middle of the left lung. No labored respirations. Clear auscultation otherwise. No recent, rhonchi or rales. HEART: [Regular rate and rhythm]. No murmur heard. [Normal peripheral pulses.] ABDOMEN: [Soft, nondistended], [nontender], [No rigidity or guarding] EXTREMITIES: Normal range of motion. [No edema.] SKIN: Warm, dry, no rash. NEURO: [No focal deficits]. Alert and oriented [x3.] PSYCH: [Normal mood and affect.] Course Vital Signs Vital signs: Vital Signs Respiratory Rate 19 02/27/24 11:00 Pulse Oximetry 100 02/27/24 11:00 Temperature 37.3 C 02/27/24 11:01 Pulse Rate 84 02/27/24 11:01 Respiratory Rate 18 02/27/24 11:01 Blood Pressure 109/72 02/27/24 11:01 Pulse Oximetry 100 02/27/24 11:01 MDM - Fever MDM Narrative Medical decision making narrative: This is a 38-year-old female with no pertinent past medical history who presents with fever, chills and subjective difficulty in breathing about 1 week. Was recently diagnosed with otitis media and treated with amoxicillin which has since improved and resolved that issue. She is concerned about infectious process. She has around COVID and flu patient's all the time at work. Her COVID and flu was negative this morning and yest
[2024-02-27 14:30] VITALS: BP 97/60; PULSE 88; RESP 16; O2SAT 97
[2024-02-27 15:00] VITALS: BP 99/60; PULSE 75; RESP 18; O2SAT 99
== END 2024-02-27 15:16 | disposition home or self-care (01) ==
PROVIDERS: Emergency Provider Student in an Organized Health Care Education/Training Program; PCP Family Medicine
DX: J18.9 Pneumonia, unspecified organism (principal); E78.5 Hyperlipidemia, unspecified; Z86.16 Personal history of COVID-19; Z87.01 Personal history of pneumonia (recurrent)
CPT/HCPCS: 36415; 71045; 71260; 80053; 81025; 83735; 85025; 96365; 99284; J0696; Q9967